=== PATIENT | female | born 1965 | race Caucasian/White ===

== ENCOUNTER 2018-09-12 23:53 | Emergency (ER) | payer SELFPAY ==
[~2018-09-12] VITALS: Ht 177.8 cm; Wt 81.6 kg
--- NOTE | ~2018-09-12 | EKG ---
[place], [place] ELECTROCARDIOGRAM REPORT NAME: SALENA RHODES UNIT #: [id number] ROOM: DOCTOR: EPIPHANY DRAFT REPORT BIRTHDATE: [birth year] [facility] Test Date: 2018-09-13 Test Time: 01:18:44 Pat Name: SALENA RHODES Department: Room: Gender: [employer]: : 1965 Requested By: ELI LOPEZ Order Number: [id number] Reading MD: Migdalia Patiño MD Measurements Intervals [place] Rate: 84 P: 37 CT: 155 QRS: -47 QRSD: 96 T: 21 QT: 377 QTc: 446 Interpretive Statements Sinus rhythm Left anterior fascicular block Anterior infarct, old Electronically Signed On 09-14-2018 12:10:09 PDT by Migdalia Patiño MD CM:EKGRPT:ELECTROCARDIOGRAM REPORT [id number] 1210 ELI LOPEZ MD EPIPHANY DRAFT REPORT ELI LOPEZ MD
[2018-09-12] MEDS ORDERED: PRILOSEC20 M1 PO (23:55)
[2018-09-12] MEDS ORDERED: CYMBALTA30 MG PO (23:55)
[2018-09-13 00:52] LABS: BILIRUBIN NEGATIVE (NEGATIVE); BLOOD 1+ (NEGATIVE); CLARITY CLEAR (CLEAR); COLOR YELLOW (YELLOW); GLUCOSE NEGATIVE (NEGATIVE); KETONE NEGATIVE (NEGATIVE); LEUKO ESTERASE NEGATIVE (NEGATIVE); NITRITE NEGATIVE (NEGATIVE); PH 6.5 (5.0-9.0); SPECIFIC GRAVITY <= 1.005 (1.005-1.030); UROBILINOGEN 0.2 E.U./dl (0.2-1.0)
[2018-09-13 01:01] LABS: URINE AMPHETAMINES < 1000 (1000ng/ml); URINE BARBITURATES < 200 (200ng/ml); URINE BENZODIAZEPINES < 200 (200ng/ml); URINE CANNABINOIDS (THC) < 50 (50ng/ml); URINE COCAINE < 300 (300ng/ml); URINE METHADONE < 300 (300ng/ml); URINE OPIATES < 300 (300ng/ml)
[2018-09-13 01:03] LABS: URINE PHENCYCLIDINE < 25 (25ng/ml)
[2018-09-13 01:08] LABS: BASO # 0.1 10*3/uL (0.0-0.1); BASO % 0.7 % (0.0-1.0); EOS # 0.2 10*3/uL (0.0-0.4); EOS % 1.8 % (1.0-4.0); HEMATOCRIT 37.4 % (37.0-47.0); HEMOGLOBIN 12.7 g/dl (12.0-16.0); LYMPH # 2.7 10*3/uL (1.3-4.4); LYMPH % 33.3 % (27.0-41.0); MEAN CELL VOLUME 94.9 fl (81.0-99.0); MEAN CORPUSCULAR HGB 32.2 pg (27.0-31.0); MEAN PLATELET VOLUME 10.7 fl (9.6-12.3); MONO # 0.5 10*3/uL (0.1-1.0); MONO % 6.3 % (3.0-9.0); NEUT # 4.6 10*3/uL (2.3-7.9); NEUT % 57.2 % (47.0-73.0); PLATELET COUNT AUTOMATED 280 10*3/uL (130-400); RED BLOOD COUNT 3.94 10*6/uL (4.10-5.10); RED CELL DISTRI WIDTH 13.1 % (0-14.5); WHITE BLOOD COUNT 8.1 10*3/uL (4.8-10.8)
[2018-09-13 01:26] LABS: BUN 8 mg/dl (7-24); CHLORIDE 104 mmol/L (98-107); CREATININE 0.62 mg/dL (0.55-1.02); POTASSIUM 3.1 mmol/L (3.5-5.1); SODIUM 140 mmol/L (136-145)
[2018-09-13 01:39] LABS: ACETAMINOPHEN (TYLENOL) < 5.0 ug/ml (10-30)
== END 2018-09-13 10:05 | disposition home or self-care (01) ==
LOC: ED 23:53
PROVIDERS: Emergency Medicine Emergency Medical Services
DX: S61.411A Laceration without foreign body of right hand, initial encounter (principal); S61.511A Laceration without foreign body of right wrist, initial encounter; F32.9 Major depressive disorder, single episode, unspecified; R91.8 Other nonspecific abnormal finding of lung field; M25.572 Pain in left ankle and joints of left foot; M53.3 Sacrococcygeal disorders, not elsewhere classified; F10.129 Alcohol abuse with intoxication, unspecified; Z79.899 Other long term (current) drug therapy; W17.89XA Other fall from one level to another, initial encounter; Y93.39 Activity, other involving climbing, rappelling and jumping off; Y92.89 Other specified places as the place of occurrence of the external cause; Y99.8 Other external cause status